=== PATIENT | male | born 1975 | race American Indian/Alaskan Native ===

== ENCOUNTER 2020-01-12 23:01 | Observation (INO) | payer OTHER ==
--- NOTE | 2020-01-12 23:20 | Emergency Department Report ---
HPI - General Chief Complaint: Seizure Time Seen by Provider: 01/12/20 23:05 - HPI HPI: Room 17 Patient is a 44-year-old male present with a chief complaint of seizure. Patient significant other is at bedside and states that the patient had multiple ROS throughout the day which include becoming diaphoretic and incoherent. She states he has the symptoms just before having a seizure sometimes. At home the patient was laying down in bed and had a generalized tonic-clonic seizure lasting approximately 5 minutes. EMS was called and arrived on scene to find the patient postictal but refusing care. EMS left and the patient had a second generalized tonic-clonic seizure this time only lasted approximately 2 minutes. EMS return and transported the patient to the ED. Patient refused IV from EMS. The significant other states she does not believe the patient has been compliant with his Depakote. The patient is currently postictal and does not answer questions ED Past Medical Hx - Past Medical History Hx Hypertension: Yes Hx Seizures: Yes Additional medical history: History of C2 fracture requiring halo but no surgery required - Surgical History Past Surgical History?: No - Family History Family history: no significant - Social History Smoking Status: Current Every Day Smoker (2/3 pack/day) Substance Use Type: Alcohol (Frequently), Marijuana - Medications Home Medications: Home Medications Medication Instructions Recorded Confirmed Last Taken Type Dexlansoprazole [Dexilant] 30 mg PO QDAY 01/12/20 01/12/20 Unknown History Divalproex ER [DepaKOTE ER] 500 mg PO BID 01/12/20 01/12/20 Unknown History FLUoxetine [PROzac] 20 mg PO BID 01/12/20 01/12/20 Unknown History ED Review of Systems ROS: Stated complaint: SEIZURE Other details as noted in HPI Comment: Unobtainable due to pts medical conditions (Postictal) Physical Exam - Physical Exam Vital Signs: Vital Signs 01/12/20 23:13 Temperature 98.1 F Pulse Rate 101 H Respiratory 16 Rate Blood Pressure 107/53 [Right] O2 Sat by Pulse 92 Oximetry Physical Exam: GENERAL: The patient is well-developed well-nourished male lying on stretcher resting not appearing to be in acute distress. Patient open eyes to verbal and tactile stimuli but does not answer questions HEENT: Normocephalic. Atraumatic. Patient has moist mucous membranes. NECK: Supple. Trachea midline CHEST/LUNGS: Clear to auscultation. There is no respiratory distress noted. HEART/CARDIOVASCULAR: Regular. There is no tachycardia. There is no gallop rub or murmur. ABDOMEN: Abdomen is soft, nontender. Patient has normal bowel sounds. There is no abdominal distention. SKIN: There is no rash. There is no edema. There is no diaphoresis. NEURO: The patient is asleep but awakens to tactile and verbal stimuli. The patient is postictal and not cooperative with neurologic exam. MUSCULOSKELETAL: There is no evidence of acute injury. ED Course Vital Signs 01/12/20 23:13 Temperature 98.1 F Pulse Rate 101 H Respiratory 16 Rate Blood Pressure 107/53 [Right] O2 Sat by Pulse 92 Oximetry ED Medical Decision Making - Lab Data Result diagrams: 01/13/20 Unknown 01/12/20 23:30 Laboratory Tests 01/12/20 01/12/20 01/13/20 23:30 23:30 Unknown WBC 10.0 RBC 5.34 H Hgb 14.7 Hct 44.4 MCV 83 L MCH 28 MCHC 33 RDW 17.4 H Plt Count 162 Lymph % (Auto) 6.4 L [place] % (Auto) 7.9 H Eos % (Auto) 0.6 Baso % (Auto) 0.9 Lymph # (Auto) 0.6 L [place] # (Auto) 0.8 Eos # (Auto) 0.1 Baso # (Auto) 0.1 Seg Neutrophils % 84.2 H Seg Neutrophils # 8.4 H Sodium 136 L Potassium 3.9 Chloride 97.8 L Carbon Dioxide 20 L Anion Gap 22 BUN 7 L Creatinine 1.0 Estimated GFR > 60 BUN/Creatinine Ratio 7 Glucose 92 Calcium 10.1 Magnesium 2.00 Valproic Acid 40.6 L - Radiology Data Radiology results: report reviewed (CT head), image reviewed (CT head) [facility] [address] [place] [address] Cat Scan Report Signed Patient: VIVIANE EVANS MR#: [id number] : 1975 Acct:[id number] Age/Sex: 44 / M ADM Date: 01/12/20 Loc: ED Attending Dr: Ordering Physician: ANA PAULA ARNOLD MD Date of Service: 01/13/20 Procedure(s): CT head/brain wo con Accession Number(s): [id number] cc: ANA PAULA ARNOLD MD CT HEAD WITHOUT CONTRAST INDICATION: Seizures / Altered mental status TECHNIQUE: Axial slices were obtained through the head. Coronal and sagittal reformatted images were obtained. COMPARISON: None available. FINDINGS: There is no intracranial hemorrhage or extra-axial fluid collection. Ventricles, basilar cisterns, and sulci appear within normal limits for age. There is no mass lesion or midline shift. No acute territorial infarct is identified. Bone windows demonstrate no acute osseous abnormality. Paranasal sinuses and mastoid air cells appear clear. TECHNIQUE: All CT scans at this facility use dose modulation, iterative reconstruction, automated exposure control, weight based dosing, when appropriate, to reduce radiation dose to as low as reasonably achievable. IMPRESSION: 1. No acute intracranial abnormality. Signer Name: Tano Pizano MD Signed: 01/13/2020 1:44 AM Workstation Name: [id number] Transcribed By: Dictated By: Tano Pizano MD Electronically Authenticated By: Tano Pizano MD Signed Date/Time: 01/13/20143 DD/ 0 TD/TT: - Differential Diagnosis Seizure Critical care attestation.: If time is entered above; I have spent that time in minutes in the direct care of this critically ill patient, excluding procedure time. ED Disposition Clinical Impression: Status epilepticus Disposition: OP ADMIT IP TO THIS HOSP Is pt being admited?: Yes Does the pt Need Aspirin: No Condition: Fair Time of Disposition: 01:53 (Hospitalist notified (Dr Barnes))
[2020-01-12] MEDS ORDERED: LORazepam 2 MG/ML VIAL ONE (23:41)
[2020-01-12] MEDS ORDERED: LORazepam 2 MG/ML VIAL IM ONE (23:52)
[2020-01-13 00:24] LABS: BUN/Creatinine Ratio 7; Blood Urea Nitrogen 7 mg/dL (9-20); Calcium 10.1 mg/dL (8.4-10.2); Hemolysis Index 7
[2020-01-13 01:00] LABS: Basophils # (Auto) 0.1 K/mm3 (0.0-0.1); Basophils % (Auto) 0.9 % (0.0-1.8); Eosinophils # (Auto) 0.1 K/mm3 (0.0-0.4); Eosinophils % (Auto) 0.6 % (0.0-4.3); Hematocrit 44.4 % (35.5-45.6); Hemoglobin 14.7 gm/dl (11.8-15.2); Lymphocytes # (Auto) 0.6 K/mm3 (1.2-5.4); Lymphocytes % (Auto) 6.4 % (13.4-35.0); Mean Corpuscular HGB Conc 33 % (32-34); Mean Corpuscular Volume 83 fl (84-94); Monocytes # (Auto) 0.8 K/mm3 (0.0-0.8); Monocytes % (Auto) 7.9 % (0.0-7.3); Platelet Count 162 K/mm3 (140-440); Red Blood Count 5.34 M/mm3 (3.65-5.03); Red Cell Distribution Width 17.4 % (13.2-15.2)
[2020-01-13] MEDS ORDERED: VALPROATE SODIUM 500 MG in SODIUM CHLORIDE 0.9% 100 ML IV ONE (01:15)
[2020-01-13] MEDS ORDERED: levETIRAcetam 1000 MG/NS 0.75% 1,000 MG/100 ML BAG IV ONE (01:37)
--- NOTE | 2020-01-13 01:49 | Cat Scan Report ---
CT HEAD WITHOUT CONTRAST INDICATION: Seizures / Altered mental status TECHNIQUE: Axial slices were obtained through the head. Coronal and sagittal reformatted images were obtained. COMPARISON: None available. FINDINGS: There is no intracranial hemorrhage or extra-axial fluid collection. Ventricles, basilar cisterns, an d sulci appear within normal limits for age. There is no mass lesion or midline shift. No acute reina torial infarct is identified. Bone windows demonstrate no acute osseous abnormality. Paranasal sinuses and mastoid air cells appear clear. TECHNIQUE: All CT scans at this facility use dose modulation, iterative reconstruction, automated ex posure control, weight based dosing, when appropriate, to reduce radiation dose to as low as reasonab ly achievable. IMPRESSION: 1. No acute intracranial abnormality. Signer Name: Tano Pizano MD Signed: 01/13/2020 1:44 AM Workstation Name: [id number]
[2020-01-13] MEDS ORDERED: MAGNESIUM HYDROXIDE (MOM) ORAL LIQD UDC PO PRN (03:37)
[2020-01-13] MEDS ORDERED: ONDANSETRON 4 MG/2 ML INJ IV PRN (03:37)
[2020-01-13] MEDS ORDERED: ACETAMINOPHEN 325 MG TAB PO PRN (03:37)
--- NOTE | 2020-01-13 03:46 | History and Physical Report ---
History of Present Illness Date of examination: 01/13/20 Date of admission: 01/13/20 01:50 Chief complaint: Seizures History of present illness: 44-year-old male with known history of hypertension and seizure disorder presenting to the emergency room today with a chief complaint of seizures. Patient was said to have had generalized tonic-clonic seizure lasting about 5 minutes at home. Patient was postictal upon arrival of EMS and he declined medical attention. He has subsequent tonic-clonic seizures after the departure of EMS. According to family patient is now quite compliant with his medications Depakote. He has been no bladder or bowel incontinence. No history of trauma to the tongue. No trauma to the head. Patient was evaluated by the neurologist and patient was subsequently placed on IV Keppra. Patient being admitted for status epilepticus. Past History Past Medical History: hypertension, seizures Past Surgical History: Other (C2 fracture) Social history: smoking (Current daily smoker), alcohol abuse, other (Uses Marijuana) Medications and Allergies Allergies Allergy/AdvReac Type Severity Reaction Status Date / Time No Known Allergies Allergy Unverified 01/12/20 23:14 Home Medications Medication Instructions Recorded Confirmed Last Taken Type Dexlansoprazole [Dexilant] 30 mg PO QDAY 01/12/20 01/12/20 Unknown History Divalproex ER [DepaKOTE ER] 500 mg PO BID 01/12/20 01/12/20 Unknown History FLUoxetine [PROzac] 20 mg PO BID 01/12/20 01/12/20 Unknown History Active Meds: Active Medications Acetaminophen (Tylenol) 650 mg PO Q4H PRN PRN Reason: Pain MILD(1-3)/Fever >100.5/MAYEN Levetiracetam 500 mg/ Dextrose 105 mls @ 400 mls/hr IV Q12HR [facility] Magnesium Hydroxide (Milk Of Magnesia) 30 ml PO Q4H PRN PRN Reason: Constipation Ondansetron HCl (Zofran) 4 mg IV Q8H PRN PRN Reason: Nausea And Vomiting Sodium Chloride (Sodium Chloride Flush Syringe 10 Ml) 10 ml IV BID [facility] Sodium Chloride (Sodium Chloride Flush Syringe 10 Ml) 10 ml IV PRN PRN PRN Reason: LINE FLUSH Review of Systems Constitutional: no fever, no chills Ears, nose, mouth and throat: no nasal congestion, no sore throat Cardiovascular: no chest pain, no palpitations Respiratory: no cough, no shortness of breath Gastrointestinal: no abdominal pain, no nausea, no vomiting, no diarrhea Genitourinary Male: no dysuria, no hematuria, no flank pain Musculoskeletal: no neck pain, no low back pain Integumentary: no rash, no pruritis Neurological: seizures, no headaches, no confusion Psychiatric: no anxiety, no depression Exam - Constitutional Vitals: Temp Pulse Resp BP Pulse Ox 98.1 F 92 H 26 H 110/57 94 01/12/20 23:13 01/13/20 02:31 01/13/20 02:31 01/13/20 02:31 01/13/20 02:31 General appearance: Present: no acute distress, well-nourished - EENT Eyes: Present: PERRL, EOM intact. Absent: scleral icterus ENT: hearing intact, clear oral mucosa, dentition normal - Neck Neck: Present: supple, normal ROM - Respiratory Respiratory effort: normal Respiratory: bilateral: CTA - Cardiovascular Rhythm: regular Heart Sounds: Present: S1 & S2. Absent: gallop, systolic murmur, diastolic murmur, rub - Extremities Extremities: no ischemia, pulses intact, pulses symmetrical, No edema, Full ROM Peripheral Pulses: within normal limits - Abdominal General gastrointestinal: Present: soft, non-tender, non-distended, normal bowel sounds. Absent: mass - Integumentary Integumentary: Present: clear, warm, dry. Absent: rash - Musculoskeletal Musculoskeletal: strength equal bilaterally - Psychiatric Psychiatric: appropriate mood/affect, intact judgment & insight, memory intact, cooperative - Neurologic Neurologic: CNII-XII intact, no focal deficits, moves all extremities Results - Labs CBC & Chem 7: 01/13/20 Unknown 01/12/20 23:30 Labs: Abnormal lab results 01/12/20 01/12/20 01/13/20 Range/Units 23:30 23:30 Unknown RBC 5.34 H (3.65-5.03) M/mm3 MCV 83 L (84-94) fl RDW 17.4 H (13.2-15.2) % Lymph % (Auto) 6.4 L (13.4-35.0) % [place] % (Auto) 7.9 H (0.0-7.3) % Lymph # (Auto) 0.6 L (1.2-5.4) K/mm3 Seg Neutrophils % 84.2 H (40.0-70.0) % Seg Neutrophils # 8.4 H (1.8-7.7) K/mm3 Sodium 136 L (137-145) mmol/L Chloride 97.8 L (98-107) mmol/L Carbon Dioxide 20 L (22-30) mmol/L BUN 7 L (9-20) mg/dL Valproic Acid 40.6 L (50-100) ug/mL Assessment and Plan - Patient Problems (1) Status epilepticus Current Visit: Yes Status: Acute Plan to address problem: Patient placed on IV Keppra. Will place on seizure precautions. Consult placed to neurology for follow-up for further recommendation. (2) Hypertension Current Visit: Yes Status: Acute Plan to address problem: We will resume routine home medications and monitor vital signs. (3) DVT prophylaxis Current Visit: Yes Status: Acute Plan to address problem: Patient placed on subcutaneous Lovenox. (4) Full code status Current Visit: Yes Status: Acute
[2020-01-13] MEDS ORDERED: levETIRAcetam 500 MG in DEXTROSE 5% IN WATER 100 ML IV SCH (10:00)
[2020-01-13] MEDS ORDERED: PANTOPRAZOLE 20 MG TAB PO SCH (10:00)
[2020-01-13] MEDS ORDERED: DIVALPROEX ER 500 MG TAB PO SCH (10:00)
[2020-01-13] MEDS ORDERED: FLUoxetine 20 MG CAP PO SCH (10:00)
[2020-01-13] MEDS ORDERED: FLU VACC QUAD 2020-2021 (6 months +)/PF 60 0.5 ML SYRINGE IM ONE (12:00)
--- NOTE | 2020-01-13 15:01 | Consultation ---
History of Present Illness Consult date: 01/13/20 Requesting physician: DOMINGO ETIENNE Reason for Consult: Seizures Chief complaint: Seizures History of present illness: 44 yo male with seizure d/o, htn, alcohol abuse, who presents with 2 seizure events despite compliance (per mother) with Depakote ER 500 mg bid. Currently, he is at his baseline. Past History Past Medical History: hypertension, seizures Past Surgical History: Other (C2 fracture) Social history: smoking (Current daily smoker), alcohol abuse, other (Uses Marijuana) Medications and Allergies Allergies Allergy/AdvReac Type Severity Reaction Status Date / Time No Known Allergies Allergy Unverified 01/12/20 23:14 Home Medications Medication Instructions Recorded Confirmed Last Taken Type Dexlansoprazole [Dexilant] 30 mg PO QDAY 01/12/20 01/12/20 Unknown History Divalproex ER [DepaKOTE ER] 500 mg PO BID 01/12/20 01/12/20 Unknown History FLUoxetine [PROzac] 20 mg PO BID 01/12/20 01/12/20 Unknown History Active Meds: Active Medications Acetaminophen (Tylenol) 650 mg PO Q4H PRN PRN Reason: Pain MILD(1-3)/Fever >100.5/MAYEN Divalproex Sodium (Depakote Dr) 750 mg PO BID [facility] Enoxaparin Sodium (Enoxaparin) 40 mg SUB-Q QDAY@2200 [facility] AN[facility]IA; Protocol Fluoxetine HCl (Prozac) 20 mg PO BID [facility] Last Admin: 01/13/20 10:31 Dose: 20 mg Documented by: Levetiracetam 500 mg/ Dextrose 105 mls @ 400 mls/hr IV Q12HR [facility] Last Admin: 01/13/20 09:34 Dose: 400 mls/hr Documented by: Magnesium Hydroxide (Milk Of Magnesia) 30 ml PO Q4H PRN PRN Reason: Constipation Ondansetron HCl (Zofran) 4 mg IV Q8H PRN PRN Reason: Nausea And Vomiting Pantoprazole Sodium (Protonix) 20 mg PO QDAY [facility] Last Admin: 01/13/20 10:31 Dose: 20 mg Documented by: Sodium Chloride (Sodium Chloride Flush Syringe 10 Ml) 10 ml IV BID [facility] Last Admin: 01/13/20 09:35 Dose: 10 ml Documented by: Sodium Chloride (Sodium Chloride Flush Syringe 10 Ml) 10 ml IV PRN PRN PRN Reason: LINE FLUSH Review of Systems All systems: negative (as per HPI;) Physical Examination - Vital Signs Vital Signs: Vital Signs BP 107/53 01/12/20 23:08 - Additional Exam Additional Exam: Gen: nad, well-nourished; Head: normocephalic; Eyes: no gaze deviation; no ptosis; ENT: normal vocalization; CVS: warm and well-perfused; Pulm: no respiratory distress;; GI: non-distended, protuberant; Ext: no cyanosis or edema at distal extremities; Skin: no acute rash at distal extremities; Heme: no pathologic bruising or ecchymosis at distal extremities; Neuro: alert, oriented to name, age, month, year, surroundings, no dysarthria, no aphasia, CN 2 - PERRL, visual peace intact, CN 3, 4, 6 - EOMI, CN 5 - facial sensation symmetric to light touch, CN 7 - facial movement symmetric, CN 8 - hearing grossly intact, CN 9, 10 - uvula midline, CN 11 - shrug symmetric, CN 12 - tongue midline; Motor - at least 4/5 in all exts; Sensory - light touch symme tric, Cerebellar - fnf deficit at RUE /hts intact, Gait - deferred secondary to seizure precautions; Results - Laboratory Findings CBC and BMP: 01/13/20 Unknown 01/12/20 23:30 Abnormal Lab Findings: Abnormal Labs 01/12/20 01/12/20 01/13/20 23:30 23:30 Unknown RBC 5.34 H MCV 83 L RDW 17.4 H Lymph % (Auto) 6.4 L [place] % (Auto) 7.9 H Lymph # (Auto) 0.6 L Seg Neutrophils % 84.2 H Seg Neutrophils # 8.4 H Sodium 136 L Chloride 97.8 L Carbon Dioxide 20 L BUN 7 L Valproic Acid 40.6 L Assessment and Plan 44 yo male with seizure d/o, alcohol abuse, htn, who presents with two seizure events in the setting of compliance w/ Depakote. 1. Seizure d/o - keppra 500 mg po/iv bid; depakote 750 mg bid. 2. Therapeutic Drug Monitoring - noted with subtherapeutic Depakote of 40.6; increase depakote ER 500 mg bid to 750 mg bid. 3. Alcohol abuse - detox/rehab per primary team/pcp. 4. Follow-up with a neurologist in one month. No driving x 6 months, no swimming/bathing/babysitting/monitoring alone, no operation of heavy machinery, no supervisory position, until cleared by a neurologist. Neurology will signoff. Taiwo Luis MD Neurology
[2020-01-13 16:40] VITALS: BP 148/69
--- NOTE | 2020-01-13 17:20 | Discharge Summary ---
Providers - Providers Date of Admission: 01/13/20 01:50 Date of discharge: 01/13/20 Attending physician: BOZENA HOU 01/13/20 03:37 Consult to Physician [CONS] Routine Comment: Consulting Provider: SOHAN LIU Physician Instructions: Reason For Exam: Seizures Primary care physician: SENIOR QUALITY MANAGER Hospitalization Condition: Fair Hospital course: 44-year-old male with known history of hypertension and seizure disorder presenting to the emergency room today with a chief complaint of seizures. Patient was said to have had generalized tonic-clonic seizure lasting about 5 minutes at home. Patient was postictal upon arrival of EMS and he declined medical attention. He has subsequent tonic-clonic seizures after the departure of EMS. According to family patient is now quite compliant with his medications Depakote. He has been no bladder or bowel incontinence. No history of trauma to the tongue. No trauma to the head. Patient was evaluated by the neurologist and patient was subsequently placed on IV Keppra. Patient being admitted for status epilepticus. No further seizures Patient cleared by neurology for discharge Assessment and Plan 44 yo male with seizure d/o, alcohol abuse, htn, who presents with two seizure events in the setting of compliance w/ Depakote. 1. Seizure d/o - keppra 500 mg po/iv bid; depakote 750 mg bid. 2. Therapeutic Drug Monitoring - noted with subtherapeutic Depakote of 40.6; increase depakote ER 500 mg bid to 750 mg bid. 3. Alcohol abuse - detox/rehab per primary team/pcp. 4. Follow-up with a neurologist in one month. No driving x 6 months, no swimming/bathing/babysitting/monitoring alone, no operation of heavy machinery, no supervisory position, until cleared by a neurologist. Neurology will signoff. Intake may be 30 I can handle it tender leg no splenomegaly see me tomorrow Disposition: DC-01 TO HOME OR SELFCARE - Discharge Diagnoses (1) Hypertension Status: Acute (2) Status epilepticus Status: Acute (3) DVT prophylaxis Status: Acute Core Measure Documentation - Palliative Care Palliative Care/ Comfort Measures: Not Applicable - Core Measures Any of the following diagnoses?: none Exam - Constitutional Vitals: Temp Pulse Resp BP Pulse Ox 99 F 69 20 148/69 95 01/13/20 15:00 01/13/20 15:01 01/13/20 15:00 01/13/20 15:00 01/13/20 15:01 General appearance: Present: no acute distress, well-nourished - EENT Eyes: Present: PERRL ENT: hearing intact, clear oral mucosa - Neck Neck: Present: supple, normal ROM - Respiratory Respiratory effort: normal Respiratory: bilateral: CTA - Cardiovascular Heart rate: 78 Rhythm: irregularly irregular (Patient with78) Heart Sounds: Present: S1 & S2. Absent: rub, click - Extremities Extremities: pulses symmetrical, No edema Peripheral Pulses: within normal limits - Abdominal General gastrointestinal: Present: soft, non-tender, non-distended, normal bowel sounds Male genitourinary: Present: normal - Integumentary Integumentary: Present: clear, warm, dry - Musculoskeletal Musculoskeletal: gait normal, strength equal bilaterally - Psychiatric Psychiatric: appropriate mood/affect, intact judgment & insight - Neurologic Neurologic: CNII-XII intact, moves all extremities - Allied Health Allied health notes reviewed: nursing, case management Plan Activity: no restrictions Diet: regular Follow up with: CIARAN MELO MD [Primary Care Provider] - 7 Days ANH OLIVARES MD [Staff Physician] - 7 Days
[2020-01-13] MEDS ORDERED: ENOXAPARIN 40 MG/0.4 ML INJ SUB-Q SCH (22:00)
[2020-01-13] MEDS ORDERED: levETIRAcetam 500 MG TAB PO SCH (22:00)
[2020-01-13] MEDS ORDERED: DIVALPROEX DR 250 MG TAB PO SCH (22:00)
== END 2020-01-13 18:00 | disposition home or self-care (01) ==
LOC: ED 23:01 → 4A 01-13 01:50
PROVIDERS: ADMIT Internal Medicine Geriatric Medicine; ATTEND Internal Medicine
DX: G40.901 Epilepsy, unspecified, not intractable, with status epilepticus (principal); I10 Essential (primary) hypertension; F17.210 Nicotine dependence, cigarettes, uncomplicated; Z98.890 Other specified postprocedural states
CPT/HCPCS: 36415; 70450; 80048; 80164; 83735; 85025; 96365; 96366; 96372; 99284; 99406; G0378; J1953; J2060